=== PATIENT | female | born 1935 | race American Indian/Alaskan Native ===

== ENCOUNTER 2016-12-05 22:16 | Emergency (ER) | payer MEDICARE ==
[2016-12-05 22:17] VITALS: BMI 26.2
[2016-12-05 22:43] VITALS: TEMP 98.7; O2SAT 100
--- NOTE | 2016-12-05 23:01 | ED PDOC ---
Arrival/HPI - General Chief Complaint: Lower Extremity Problem/Injury Time Seen by Provider: 12/05/16 22:44 Historian: Patient - History of Present Illness Narrative History of Present Illness (Text): 12/05/16 23:00 Mindy Mota is an 81 year old female, whose past medical history includes hypertension, who presents to the emergency department complaining of swelling to bilateral ankles since earlier today. Patient denies any calf pain, fever, chills, chest pain, shortness of breath, abdominal pain, nausea, vomiting, diarrhea, urinary symptoms, back pain, neck pain, headache, dizziness, or any other complaints. Time/Duration: Other (today) Symptom Onset: Gradual Symptom Course: Unchanged Activities at Onset: Rest, Light Context: Home Past Medical History - Provider Review Nursing Documentation Reviewed: Yes - Infectious Disease Hx of Infectious Diseases: None - Reproductive Menopause: Yes - Cardiac Hx Cardiac Disorders: Yes Hx Hypertension: Yes - Pulmonary Hx Respiratory Disorders: No - Neurological Hx Neurological Disorder: No - HEENT Hx HEENT Disorder: No - Renal Hx Renal Disorder: No - Endocrine/Metabolic Hx Endocrine Disorders: No - Hematological/Oncological Hx Blood Disorders: Yes Hx Cancer: Yes (left breast) - Integumentary Hx Dermatological Disorder: No - Psychiatric Hx Substance Use: No - Surgical History Hx Appendectomy: Yes Hx Mastectomy: Yes (lefdt breast) Other/Comment: left arm alert - Anesthesia Hx Anesthesia: Yes Hx Anesthesia Reactions: No Hx Malignant Hyperthermia: No Family/Social History - Physician Review Nursing Documentation Reviewed: Yes Family/Social History: Unknown Family HX Smoking Status: Never Smoked Hx Alcohol Use: No Hx Substance Use: No Allergies/Home Meds Allergies/Adverse Reactions: Allergies Penicillins Allergy (Verified 12/05/16 22:43) RASH Home Medications: Home Meds Medication Instructions Recorded Confirmed Amlodipine Besylate/Benazepril 1 cap PO DAILY 10/02/15 12/05/16 [Amlodipine Besylate and Benazepril Hydrochlor] Aspirin [Ecotrin] 81 mg PO DAILY 10/02/15 12/05/16 Folic Acid/Mv,Fe,Min [Centrum 1 each PO DAILY 10/02/15 12/05/16 Multivitamin Tab Chew] B12/Levomefolate Calcium/B-6 1 tab PO DAILY 12/05/16 12/05/16 [Foltx 2 mg-1.13 mg-25 mg] Review of Systems - Physician Review All systems were reviewed & negative as marked: Yes - Review of Systems Constitutional: Normal. absent: Fevers Eyes: Normal ENT: Normal Respiratory: Normal. absent: SOB, Cough Cardiovascular: Normal. absent: Chest Pain Gastrointestinal: Normal. absent: Abdominal Pain, Diarrhea, Nausea, Vomiting Genitourinary Female: Normal. absent: Dysuria, Frequency, Hematuria, Urine Output Changes Musculoskeletal: Other (+bilateral feet swelling). absent: Back Pain, Neck Pain Skin: Normal. absent: Rash Neurological: Normal. absent: Headache, Dizziness Endocrine: Normal Hemo/Lymphatic: Normal Psychiatric: Normal Physical Exam Vital Signs Reviewed: Yes Vital Signs Temp Pulse Resp BP Pulse Ox 12/05/16 22:38 98.7 F 61 20 161/63 H 100 Temperature: Afebrile Blood Pressure: Hypertensive Pulse: Regular Respiratory Rate: Normal Appearance: Positive for: Well-Appearing, Non-Toxic, Comfortable Pain Distress: None Mental Status: Positive for: Alert and Oriented X 3 - Systems Exam Head: Present: Atraumatic, Normocephalic Pupils: Present: PERRL Extroacular Muscles: Present: EOMI Conjunctiva: Present: Normal Mouth: Present: Moist Mucous Membranes Neck: Present: Normal Range of Motion Respiratory/Chest: Present: Clear to Auscultation, Good Air Exchange. No: Respiratory Distress, Accessory Muscle Use Cardiovascular: Present: Regular Rate and Rhythm, Normal S1, S2. No: Murmurs Abdomen: Present: Normal Bowel Sounds. No: Tenderness, Distention, Peritoneal Signs Back: Present: Normal Inspection Upper Extremity: Present: Normal Inspection. No: Cyanosis, Edema Lower Extremity: Present: NORMAL PULSES, Normal ROM, Swelling (Minimal swelling to bilateral ankles), Neurovascularly Intact, Capillary Refill < 2 s. No: Edema , CALF TENDERNESS, Cyanosis, Tenderness, Erythema, Deformity, Temperature Abnormalties Neurological: Present: GCS=15, CN II-XII Intact, Speech Normal Skin: Present: Warm, Dry, Normal Color. No: Rashes Psychiatric: Present: Alert, Oriented x 3, Normal Insight, Normal Concentration Medical Decision Making ED Course and Treatment: 12/05/16 23:00 Impression: 81 year old female complaining of bilateral feet swelling. Plan: -- EKG -- CXR -- Labs, BNP -- Reassess and disposition Prior Visits: Notes and results from previous visits were reviewed. On 10/02/2015, pt was seen in the emergency department for right eye pain and nausea. Pt was d/c home. Progress Notes: Reviewed EKG, sinus bradycardia at 56 bpm. No acute changes. 12/06/16 00:47 Reviewed radiology, CXR shows no acute processes. 12/06/16 02:30 On reevaluation the patient feels better and is in no acute distress. I have discussed the results and plan with the patient, who expresses understanding. Patient given the opportunity to ask question, all questions were answered and there is agreement with the plan to discharge the patient home. Patient is stable for discharge. Patient was instructed to follow up with physician/clinic in 1-2 days or return if symptoms persist/worsen or new concerning symptoms arise. - Lab Interpretations Lab Results: 12/05/16 23:15 12/05/16 23:15 Lab Results 12/05/16 23:15: WBC 3.3 L, RBC 3.51, Hgb 9.1 L, Hct 29.3 L, MCV 83.5, MCH 25.9, MCHC 31.1, RDW 15.9 H, Plt Count 187, MPV 9.9 12/05/16 23:15: Sodium 139, Potassium 3.9, Chloride 102, Carbon Dioxide 31, Anion Gap 10, BUN 24 H, Creatinine 0.9, Est GFR ( Amer) > 60, Est GFR ( Non-Af Amer) 60, Random Glucose 79, Calcium 9.5, Total Bilirubin 0.4, AST 27, ALT 28, Alkaline Phosphatase 73, NT-Pro-B Natriuret Pep 199, Total Protein 6.5, Albumin 3.5, Globulin 3.0, Albumin/Globulin Ratio 1.2 12/05/16 23:15: PT 11.9 H, INR 1.10 H, APTT 27.3 I have reviewed the lab results: Yes - RAD Interpretation Radiology Orders: 12/05/16 23:02 CHEST PORTABLE [RAD] Stat Criminal Intelligence Analyst: ED Physician - EKG Interpretation Interpreted by ED Physician: Yes Type: 12 lead EKG - Scribe Statement The provider has reviewed the documentation as recorded by the Scribe Federica Ocampo All medical record entries made by the Scribe were at my direction and personally dictated by me. I have reviewed the chart and agree that the record accurately reflects my personal performance of the history, physical exam, medical decision making, and the department course for this patient. I have also personally directed, reviewed, and agree with the discharge instructions and disposition. Disposition/Present on Arrival - Present on Arrival Any Indicators Present on Arrival: No History of DVT/PE: No History of Uncontrolled Diabetes: No Urinary Catheter: No History of Decub. Ulcer: No History Surgical Site Infection Following: None - Disposition Have Diagnosis and Disposition been Completed?: Yes Diagnosis: Swollen ankles, Dependent edema Disposition: HOME/ ROUTINE Disposition Time: 02:32 Patient Plan: Discharge Patient Problems: Current Active Problems Problem Status Onset Dependent edema Acute Swollen ankles Acute Condition: GOOD Additional Instructions: Avoid prolonged sitting or standing/keep legs elevated when resting/follow up with your doctor this week
[2016-12-06 00:21] LABS: HEMOGLOBIN 9.1 gm/dL (12.0-16.0); MEAN CELL VOLUME 83.5 fL (80.0-105.0); MEAN CORPUSCULAR HEMOGLOBIN 25.9 pg (25.0-35.0); MEAN CORPUSCULAR HGB CONC 31.1 g/dl (31.0-37.0); MEAN PLATELET VOLUME 9.9 fl (7.0-11.0); RBC 3.51 10^6/uL (3.5-6.1); RED CELL DISTRIBUTION WIDTH 15.9 % (11.5-14.5); WHITE BLOOD COUNT 3.3 10^3/ul (4.5-11.0)
[2016-12-06 00:26] LABS: ALB/GLOB RATIO 1.2 (1.1-1.8); ALBUMIN 3.5 g/dL (3.0-4.8); ALT/SGPT 28 U/L (7-56); AST/SGOT 27 U/L (15-39); BLOOD UREA NITROGEN 24 mg/dL (7-21); CALCIUM 9.5 mg/dL (8.4-10.5); GFR AFRICAN-AMERICAN > 60; GFR NON-AFRICAN AMERICAN 60
[2016-12-06 00:29] LABS: INR 1.1 (0.93-1.08); PARTIAL THROMBOPLASTIN TIME 27.3 Seconds (23.7-30.8); PROTHROMBIN TIME 11.9 Seconds (9.9-11.8)
[2016-12-06 00:35] LABS: B-TYPE NATRIURETIC PEPTIDE 199 pg/mL (0-450)
[2016-12-06 02:43] VITALS: BP 157/75; PULSE 59; RESP 18
--- NOTE | 2016-12-06 11:23 | CARD ---
APPROVED REPORT EKG Measurement Heart [id number] <Conclusion> Sinus bradycardia Minimal voltage criteria for LVH, may be normal variant Borderline ECG
--- NOTE | 2016-12-06 11:33 | RAD ---
HISTORY: Ankle swelling. Technique: Single view portable semi erect @ 23:19. COMPARISON: No prior. FINDINGS: LUNGS: No active pulmonary disease. PLEURA: No significant pleural effusion identified, no pneumothorax apparent. CARDIOVASCULAR: No radiographic findings to suggest acute or significant cardiovascular disease. OSSEOUS STRUCTURES: No significant abnormalities. VISUALIZED UPPER ABDOMEN: Normal. OTHER FINDINGS: None. IMPRESSION: No active disease.
== END 2016-12-06 02:45 | disposition home or self-care (01) ==
LOC: ED 22:16
DX: R60.9 Edema, unspecified (principal); M79.89 Other specified soft tissue disorders; I10 Essential (primary) hypertension